=== PATIENT | female | born 1990 | race American Indian/Alaskan Native ===

== ENCOUNTER 2020-06-07 10:45 | Emergency (ER) | payer SELFPAY ==
[2020-06-07 11:13] VITALS: BP 178/111
--- NOTE | 2020-06-07 11:47 | Emergency Department Report ---
ED Female HPI - General Chief complaint: Abdominal Pain Stated complaint: ABD PAIN/ EDNOMETROSIS PAIN Time Seen by Provider: 06/07/20 11:27 Source: patient Mode of arrival: Ambulatory Limitations: No Limitations - History of Present Illness Initial comments: Patient is a 29-year-old female presents emergency room complaints of chronic pelvic pain that exacerbated 4 days ago. She states that she has associated nausea and has had a couple of episodes of vomiting over the last 4 days. She states that she has had some mild spotting but that has since resolved. She denies any fever, diarrhea, dysuria, vaginal discharge or irritation. Patient states she has a past medical history of PCOS, endometriosis, ovarian cyst. She states that she has a right oophorectomy scheduled with Dr. Mcdowell, [employer] SU[employer] REP on 06/12/2020. She states her last menstrual cycle was May 19-. She reports that she was at another hospital on 05/28/2020 for the same complaint and had a pelvic ultrasound at that time which showed a right ovarian cyst that was approximately 5 cm based on the report the patient showed me. pt states that she does not have any pain medication to take at home, she reports she only has naproxen per pt. - Related Data Allergies Allergy/AdvReac Type Severity Reaction Status Date / Time butorphanol [From Stadol] Allergy Hives Verified 06/07/20 10:48 ketorolac [From Toradol] Allergy Hives Verified 06/07/20 10:48 ED Review of Systems ROS: Stated complaint: ABD PAIN/ EDNOMETROSIS PAIN Other details as noted in HPI Comment: All other systems reviewed and negative ED Past Medical Hx - Past Medical History Previous Medical History?: Yes Additional medical history: Endometriosis, PCOS - Surgical History Past Surgical History?: Yes Additional Surgical History: Abd surgeries - Social History Smoking Status: Never Smoker Substance Use Type: None ED Physical Exam - General Limitations: No Limitations General appearance: alert, in no apparent distress - Head Head exam: Present: atraumatic, normocephalic - Eye Eye exam: Present: normal appearance - ENT ENT exam: Present: mucous membranes moist - Respiratory Respiratory exam: Present: normal lung sounds bilaterally. Absent: respiratory distress, wheezes, rales, rhonchi, stridor, chest wall tenderness, accessory muscle use, decreased breath sounds, prolonged expiratory - Cardiovascular Cardiovascular Exam: Present: regular rate, normal rhythm, normal heart sounds. Absent: systolic murmur, diastolic murmur, rubs, gallop - GI/Abdominal GI/Abdominal exam: Present: soft, tenderness (suprapubic ), normal bowel sounds. Absent: distended, guarding, rebound, rigid - Neurological Exam Neurological exam: Present: alert, oriented X3 - Psychiatric Psychiatric exam: Present: normal affect, normal mood - Skin Skin exam: Present: warm, dry, intact ED Course Vital Signs 06/07/20 11:12 Temperature 97.8 F Pulse Rate 77 Respiratory 16 Rate Blood Pressure 178/111 [Right] O2 Sat by Pulse 95 Oximetry ED Medical Decision Making - Medical Decision Making Patient is a 29-year-old female presents emergency room complaints of chronic pelvic pain that exacerbated 4 days ago. She states that she has associated nausea and has had a couple of episodes of vomiting over the last 4 days. She states that she has had some mild spotting but that has since resolved. She denies any fever, diarrhea, dysuria, vaginal discharge or irritation. Patient states she has a past medical history of PCOS, endometriosis, ovarian cyst. She states that she has a right oophorectomy scheduled with Dr. Mcdowell, [employer] REP on 06/12/2020. She states her last menstrual cycle was May 19-. She reports that she was at another hospital on 05/28/2020 for the same complaint and had a pelvic ultrasound at that time which showed a right ovarian cyst that was approximately 5 cm based on the report the patient showed me. pt states that she does not have any pain medication to take at home, she reports she only has naproxen per pt. vitals with elevated BP otherwise normal. on exam: pt has suprapubic abd ttp, no guarding, no rebound, no rigidity, normal bowel sounds, no peritoneal signs. urine preg is negative, UA WNL. pt is specifically requesting to have either morphine or tramadol. typically, ovarian cysts/PCOS the appropriate treatment is NSAIDs. pt states her allergy to toradol is itching. pt advised me she had no more pain medication at home. she was prescribed 30 tablets of tramadol on 06/03/2020 and should have a 7 week supply. 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 I advised pt that she could not have any further narcotics from the emergency department due to safety concerns and we could not give her any more tramadol. She then asked for "morphine intravenously." I advised pt that we could not give her any further narcotics. I offered pt naproxen and she declined and left the emergency department. Pt has already been worked up for this complaint by multiple facilities, she most recently had a US on 05/28/2020 by another outside hospital, she already has a procedure scheduled for 06/12/2020. I advised pt that she needed to speak with and follow up with her erp developer especially since she should not be out of her tramadol that she was prescribed on 06/03/2020. 06/03/2020 2 06/03/2020 TRAMADOL HCL 50 MG TABLET 30.0 7 JI SHE [id number] KROGE ([id number]) 0 21.43 MME Comm Ins 06/01/2020 2 05/31/2020 TRAMADOL HCL 50 MG TABLET 8.0 1 KA ALI [id number] PUBLI ([id number]) 0 40.0 MME Comm Ins 05/29/2020 4 05/28/2020 TRAMADOL HCL 50 MG TABLET 15.0 4 AN BAR [id number] ROMARIO ([id number]) 0 18.75 MME Medicaid 05/23/2020 4 05/07/2020 TRAMADOL HCL 50 MG TABLET 30.0 7 JI SHE [id number] WALGR ([id number]) 0 21.43 MME Comm Ins 05/05/2020 3 05/05/2020 TRAMADOL HCL 50 MG TABLET 20.0 5 KI JAYJAY [id number] FLORA ([id number]) 0 20.0 MME Private Pay 05/02/2020 2 05/02/2020 TRAMADOL HCL 50 MG TABLET 15.0 3 TA [facility] [id number] KROGE ([id number]) 0 25.0 MME Private Pay 04/21/2020 4 04/21/2020 TRAMADOL HCL 50 MG TABLET 30.[address]RA [id number] WALGR ([id number]) 0 21.43 MME Comm Ins 03/28/2020 4 03/28/2020 TRAMADOL HCL 50 MG TABLET 30.[address] BRA [id number] WALGR ([id number]) 0 21.43 MME Comm Ins 03/26/2020 4 03/26/2020 TRAMADOL HCL 50 MG TABLET 10.0 2 KA PAT [id number] ROMARIO ([id number]) 0 25.0 MME [place] 03/26/2020 4 03/26/2020 OXYCODONE-ACETAMINOPHEN 5-325 10.0 2 KA PAT [id number] ROMARIO ([id number]) 0 37.5 MME [place] 03/24/2020 4 03/24/2020 TRAMADOL HCL 50 MG TABLET 15.0 4 GR PHA [id number] WALGR ([id number]) 0 18.75 MME [place] 03/11/2020 2 03/11/2020 TRAMADOL HCL 50 MG TABLET 15.0 2 TA [facility] [id number] KROGE ([id number]) 0 37.5 MME [place] 12/12/2019 4 12/12/2019 TRAMADOL HCL 50 MG TABLET 15.0 4 [facility] [employer] [id number] ROMARIO ([id number]) 0 18.75 MME [place] 10/26/2019 4 10/26/2019 TRAMADOL HCL 50 MG TABLET 15.0 5 DE PAT [id number] WALGR ([id number]) 0 15.0 MME Comm Ins [place] Critical care attestation.: If time is entered above; I have spent that time in minutes in the direct care of this critically ill patient, excluding procedure time. ED Disposition Clinical Impression: Chronic pelvic pain in female Disposition: DC-01 TO HOME OR SELFCARE Is pt being admited?: No Does the pt Need Aspirin: No Condition: Stable Instructions: Abdominal Pain (ED) Additional Instructions: Please continue taking your medications that you have been prescribed by your doctor. Please follow up with your PRODUCT SUPPORT REP. Return to emergency room for any new or worsening symptoms. Referrals: DENZEL CHEUNG MD [Primary Care Provider] - 2-3 Days TIFFANI MCDOWELL MD [Staff Physician] - 2-3 Days Time of Disposition: 13:10 Print Language: NICARAGU[place]
[2020-06-07 12:45] LABS: Bacteria,Urine 2+ /HPF (Negative); Bilirubin,Urine NEG (Negative); Blood,Urine NEG (Negative); Color,Urine Yellow (Yellow); HCG Qualitative,Urine Negative (Negative); Mucus,Urine 3+ /HPF; Protein,Urine <15 mg/dL mg/dL (Negative)
== END 2020-06-07 13:12 | disposition home or self-care (01) ==
LOC: ED 10:45
DX: R10.2 Pelvic and perineal pain (principal); G89.29 Other chronic pain; E28.2 Polycystic ovarian syndrome; Z98.890 Other specified postprocedural states
CPT/HCPCS: 81001; 81025; 99283